=== PATIENT | male | born 1930 | race Caucasian/White ===

== ENCOUNTER 2019-02-19 19:31 | Emergency (ER) | payer MEDICARE, MEDICAID ==
[~2019-02-19] VITALS: Ht 177.8 cm; Wt 86.2 kg
[~2019-02-19 19:31] MED LIST: ASPIR 8181 MG ORAL; AZITHROMYCIN250 MG ORAL; DOXYCYCLINE MO100 MG ORAL; EDARBYCLOR 40-1 EACH ORAL; FLOMAX0.4 MG ORAL; GUAIFENESIN-CO118 M1 ORAL; PRILOSEC20 MG ORAL; ZETIA10 MG ORAL
[2019-02-19 19:50] VITALS: BP 197/88
--- NOTE | 2019-02-19 19:50 | NUR ---
ED Nurse Note: Patient was BIBA from home due to SOB, chest pain x 2 days. Per patient he was trying to close his garage door and his ches started hirting. AAO x4, VSS at this time, patient's BP 190/85, skin is dry,warm to touch.
[2019-02-19 20:21] LABS: BASOPHILS % (AUTO) 0.8 % (0.0-2.0); HEMATOCRIT 40.7 % (42.0-52.0); HEMOGLOBIN 13.4 G/DL (14.2-18.0); LYMPHOCYTES % (AUTO) 18.3 % (20.0-45.0); MEAN CORPUSCULAR VOLUME 83 FL (80-99); MONOCYTES % (AUTO) 11.7 % (1.0-10.0); NEUTROPHILS % (AUTO) 67.2 % (45.0-75.0); PLATELET COUNT 181 K/UL (150-450); RED CELL DISTRIBUTION WIDTH 13.2 % (11.6-14.8); WHITE BLOOD COUNT 8.7 K/UL (4.8-10.8)
--- NOTE | 2019-02-19 20:22 | Diagnostic Imaging Report ---
EXAM: XR Chest, 1 View CLINICAL HISTORY: CP TECHNIQUE: Frontal view of the chest. COMPARISON: 11/02/14 FINDINGS: Lungs: Unremarkable. No consolidation. Pleural space: Unremarkable. No pneumothorax. Heart: Mild cardiomegaly. Mediastinum: Unremarkable. Bones/joints: Unremarkable. IMPRESSION: Mild cardiomegaly. Otherwise no acute cardiopulmonary process.
[2019-02-19 20:27] LABS: APPEARANCE,URINE CLEAR; BILIRUBIN, URINE NEGATIVE (NEGATIVE); COLOR,URINE PALE YELLOW; GLUCOSE, URINE (UA) NEGATIVE (NEGATIVE); KETONES,URINE NEGATIVE (NEGATIVE); LEUKOCYTE ESTERASE ,URINE 1+ (NEGATIVE); NITRITE,URINE NEGATIVE (NEGATIVE); PH,URINE 5 (4.5-8.0); PROTEIN,URINE 2+ (NEGATIVE); UROBILINOGEN,URINE NORMAL MG/DL (0.0-1.0)
--- NOTE | 2019-02-19 20:32 | NUR ---
Pollo dhaliwal in ED - 02/19/19 at 2039 by [email or web address] ELOPEMENT: Patient's BP 197/98 Dr. Vinson aware, no new orders.
--- NOTE | 2019-02-19 20:39 | NUR ---
ED Nurse Note: Patient's BP 197/98 Dr. Vinson aware, no new orders.
[2019-02-19 20:50] VITALS: BP 195/88
[2019-02-19 21:07] LABS: ANION GAP 10 mmol/L (5-15); BLOOD UREA NITROGEN 24 mg/dL (7-18); CALCIUM 9.2 MG/DL (8.5-10.1); CARBON DIOXIDE 25 MMOL/L (21-32); CHLORIDE 107 MMOL/L (98-107); CREATININE 1.5 MG/DL (0.55-1.30); POTASSIUM 3.9 MMOL/L (3.5-5.1); SODIUM 142 MMOL/L (136-145)
[2019-02-19 21:21] LABS: ALANINE AMINOTRANSFERASE 8 U/L (12-78); ALBUMIN 3.1 G/DL (3.4-5.0); ALBUMIN/GLOBULIN RATIO 0.9 (1.0-2.7); ALKALINE PHOSPHATASE 83 U/L (46-116); ASPARTATE AMINO TRANSFERASE 14 U/L (15-37); BILIRUBIN,TOTAL 0.3 MG/DL (0.2-1.0); CKMB 2.5 NG/ML (0.0-3.6); CREATINE KINASE 56 U/L (26-308)
[2019-02-19 21:50] VITALS: BP 198/89
--- NOTE | 2019-02-19 21:54 | NUR ---
Face sheet and EKG faxed to [facility].
[2019-02-19] MEDS ORDERED: Heparin 5000 units/ml inj IV ONE (22:00)
[2019-02-19] MEDS ORDERED: Heparin 25,000u/D5W 500ml 500 ML IV SCH ×2 (22:00→22:45)
--- NOTE | 2019-02-19 22:17 | Emergency Room Report ---
History of Present Illness General Chief Complaint: Chest Pain Source: Patient Present Illness HPI This patient states that for the past 24 hours he has had dyspnea on exertion. He states if he rests and relaxes he has no pain. However, if he does anything he will get short of breath with chest tightness and chest pressure. He denies recent illness. He has had a cough that he saw an ear nose and throat physician for. He has a history of tobacco use and this was felt to be the reason for the chronic cough. He denies fever or chills. He denies nausea or vomiting. He denies abdominal pain. He does not take any medications. He has no other complaints. Allergies: Coded Allergies: No Known Allergies (Unverified , 11/02/14) Patient History Past Medical History: see triage record, HTN, NH, CAD, other - BPH Social History: Denies: smoking - Hx of tobacco use, alcohol use, drug use Reviewed Nursing Documentation: PMH: Agreed; PSxH: Agreed Nursing Documentation-PMH Past Medical History: No History, Except For Hx Cardiac Problems: Yes - NH, BPH Hx Hypertension: Yes Review of Systems All Other Systems: negative except mentioned in HPI Physical Exam Vital Signs Date Time Temp Pulse Resp B/P (MAP) Pulse Ox O2 Delivery O2 Flow Rate FiO2 02/19/19 19:32 99.0 84 18 180/91 (120) 96 Room Air 02/19/19 19:50 2.0 Sp02 EP Interpretation: reviewed, normal General Appearance: no apparent distress, alert, GCS 15, non-toxic Head: normocephalic, atraumatic Eyes: bilateral eye normal inspection, bilateral eye PERRL ENT: hearing grossly normal, normal pharynx, no angioedema, normal voice Neck: full range of motion, supple/symm/no masses Respiratory: chest non-tender, lungs clear, normal breath sounds, no respiratory distress, no retraction, no accessory muscle use, speaking full sentences Cardiovascular #1: regular rate, rhythm, no edema Gastrointestinal: normal bowel sounds, non tender, soft, non-distended, no guarding, no rebound Rectal: deferred Musculoskeletal: back normal, gait/station normal, normal range of motion, non- tender Neurologic: alert, oriented x3, responsive, motor strength/tone normal, sensory intact, speech normal Psychiatric: judgement/insight normal, memory normal, mood/affect normal, no suicidal/homicidal ideation Skin: no rash Medical Decision Making Diagnostic Impression: Primary Impression: NSTEMI (non-ST elevated myocardial infarction) ER Course This patient has an NSTEMI. Likely he has a stent stenosis. He was given aspirin, Plavix and given a heparin bolus and placed on heparin drip. 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 This patient is critically ill. This patient required complex medical decision- making, aggressive intervention, extensive laboratory workup and monitoring. Critical care time: 40 minutes. Laboratory Tests Test 02/19/19 20:04 White Blood Count 8.7 K/UL (4.8-10.8) Red Blood Count 4.90 M/UL (4.70-6.10) Hemoglobin 13.4 G/DL (14.2-18.0) L Hematocrit 40.7 % (42.0-52.0) L Mean Corpuscular Volume 83 FL (80-99) Mean Corpuscular Hemoglobin 27.3 PG (27.0-31.0) Mean Corpuscular Hemoglobin Concent 32.8 G/DL (32.0-36.0) Red Cell Distribution Width 13.2 % (11.6-14.8) Platelet Count 181 K/UL (150-450) Mean Platelet Volume 5.3 FL (6.5-10.1) L Neutrophils (%) (Auto) 67.2 % (45.0-75.0) Lymphocytes (%) (Auto) 18.3 % (20.0-45.0) L Monocytes (%) (Auto) 11.7 % (1.0-10.0) H Eosinophils (%) (Auto) 2.0 % (0.0-3.0) Basophils (%) (Auto) 0.8 % (0.0-2.0) Prothrombin Time 11.1 SEC (9.30-11.50) Prothrombin Time INR 1.0 (0.9-1.1) PTT 28 SEC (23-33) Urine Color Pale yellow Urine Appearance Clear Urine pH 5 (4.5-8.0) Urine Specific [place] 1.020 (1.005-1.035) Urine Protein 2+ (NEGATIVE) H Urine Glucose (UA) Negative (NEGATIVE) Urine Ketones Negative (NEGATIVE) Urine Blood 1+ (NEGATIVE) H Urine Nitrite Negative (NEGATIVE) Urine Bilirubin Negative (NEGATIVE) Urine Urobilinogen Normal MG/DL (0.0-1.0) Urine Leukocyte Esterase 1+ (NEGATIVE) H Urine RBC 0-2 /HPF (0 - 0) H Urine WBC 2-4 /HPF (0 - 0) Urine Squamous Epithelial Cells None /LPF (NONE/OCC) Urine Bacteria Few /HPF (NONE) Sodium Level 142 MMOL/L (136-145) Potassium Level 3.9 MMOL/L (3.5-5.1) Chloride Level 107 MMOL/L (98-107) Carbon Dioxide Level 25 MMOL/L (21-32) Anion Gap 10 mmol/L (5-15) Blood Urea Nitrogen 24 mg/dL (7-18) H Creatinine 1.5 MG/DL (0.55-1.30) H Estimate Glomerular Filtration Rate mL/min (>60) Glucose Level 137 MG/DL (74-106) H Calcium Level 9.2 MG/DL (8.5-10.1) Total Bilirubin 0.3 MG/DL (0.2-1.0) Aspartate Amino Transferase (AST) 14 U/L (15-37) L Alanine Aminotransferase (ALT) 8 U/L (12-78) L Alkaline Phosphatase 83 U/L (46-116) Total Creatine Kinase 56 U/L (26-308) Creatine Kinase MB 2.5 NG/ML (0.0-3.6) Creatine Kinase MB Relative Index 4.4 Troponin I 0.705 ng/mL (0.000-0.056) Pro-B-Type Natriuretic Peptide 1360 pg/mL (0-125) H Total Protein 6.6 G/DL (6.4-8.2) Albumin 3.1 G/DL (3.4-5.0) L Globulin 3.5 g/dL Albumin/Globulin Ratio 0.9 (1.0-2.7) L EKG Diagnostic Results Rate: normal Rhythm: NSR ST Segments: no acute changes Other Impression IRBBB Rhythm Strip Diag. Results EP Interpretation: yes Rate: 50's Rhythm: no PVC's - PVC's, S.dana, other Chest X-Ray Diagnostic Results Chest X-Ray Diagnostic Results : Chest X-Ray Ordered: Yes # of Views/Limited/Complete: 1 View Indication: Chest Pain EP Interpretation: Yes Interpretation: no acute cardiopulmonary disease, other - cardiomegaly Impression: No acute disease Electronically Signed by: Gladys Lehman DO Last Vital Signs Date Time Temp Pulse Resp B/P (MAP) Pulse Ox O2 Delivery O2 Flow Rate FiO2 02/19/19 19:50 84 18 Room Air 02/19/19 19:50 99.0 197/88 99 2.0 Status: improved Disposition: XFER SHT-TRM HOSP Condition: Serious Referrals: NOT CHOSEN IPA/,REFERRING (PCP) Gladys Lehman DO Feb 19, 2019 22:17
[2019-02-19 22:50] VITALS: BP 165/80
--- NOTE | 2019-02-19 22:58 | NUR ---
ED Nurse Note: Patient deny any pain, AAO x4, BP is 196/75, oter VSS at this time. Heparin bolus was given, Heparin drip was started, no acute disstress noticed.
--- NOTE | 2019-02-19 23:08 | NUR ---
ED Nurse Note: Tryed to give report, JESSICA Gaspar states will call me back in 15 min.
--- NOTE | 2019-02-19 23:28 | NUR ---
ED Nurse Note: Report given to JESSICA Quinonez at [facility].
--- NOTE | 2019-02-19 23:47 | NUR ---
Spoke with Amol at [facility]-transport delayed another 30-45 min.
[2019-02-19 23:50] VITALS: BP 148/67
[2019-02-20 00:13] VITALS: BP 165/80
--- NOTE | 2019-02-20 01:14 | NUR ---
[facility] just arrived after several calls made for ETAs.
[2019-02-20 01:29] VITALS: BP 144/55
--- NOTE | 2019-02-20 01:37 | NUR ---
ED Nurse Note: Patient was transfered to [facility] for higher level of care, due to NONSTEMI. AAO x4, VSS at this time, skin is dry, intact. Patient was transfered via [id number] by ALS protocol with all belongings.
== END 2019-02-20 01:40 | disposition short-term general hospital (02) ==
LOC: EDBD 19:31 → EDUNIT# 19:31 → EMR 21:39 → EDBEDREQ 22:18 → EMR 02-20 01:40
DX: I21.4 Non-ST elevation (NSTEMI) myocardial infarction (principal); I25.2 Old myocardial infarction; I11.9 Hypertensive heart disease without heart failure; I51.7 Cardiomegaly
CPT/HCPCS: 36415; 71045; 80053; 81003; 82550; 82553; 83880; 84484; 85025; 85610; 85730; 93005; 96374; 99284; J1644